=== PATIENT | female | born 1940 | race Caucasian/White ===

== ENCOUNTER → 2020-04-26 | Outpatient (CLI) | payer OTHER ==
[~2020-04-26] MED LIST: CALCIUM 500 +1 EAC5 PO; CARDIZEM CD 18180 M3 PO; COUMADIN 1MG TAB1 M1 PO; FLECAINIDE ACE150 MG PO; LISINOPRIL20 MG PO; SIMVASTATIN10 MG PO; VITAMIN D1000 UNI1 PO; XANAX 0.25 MG0.25 MG PO
== END ==
LOC: LAB 11:36
PROVIDERS: ATTEND Specialist
DX: Z01.812 Encounter for preprocedural laboratory examination (principal); Z20.822 Contact with and (suspected) exposure to COVID-19

== ENCOUNTER → 2020-05-01 | Outpatient (CLI) | payer OTHER ==
[~2020-05-01] VITALS: Ht 144.8 cm; Wt 44.0 kg
[~2020-05-01] MED LIST changes: +ASA81BEC PO; +CALCIUM CARBON500 MG PO; +ESSENTIAL DAIL1 EACH PO; +FEOSOL45 M1 PO; +MIRALAX17 GM PO; +ROSUVASTATIN CA20 MG PO; +WARFARIN SODIUM1 MG PO; +WARFARIN SODIUM3 MG PO; +[UNRECOGNIZED DRUG - OTHER] PO
[2020-05-01 08:53] LABS: INR 1.2; PROTIME 12.6 Seconds (9.3-11.4)
--- NOTE | 2020-05-06 19:06 | PATH ---
[facility] [address] [place] [address] PATHOLOGY RPT PROCEDURE Name: FRANKIE PÉREZ Room #: REG DAGOBERTO [facility].#: [id number] Admission: 05/01/20 Date of : 42 Discharge: Report #: [id number] Path Case #: [id number] [facility] Accession Number: [id number] . 01 Material submitted: . PART A: duodenum - BIOPSY DUODENAL RULE OUT SPRUE PART B: gastrointestinal site - BIOPSY GASTRITIS RULE OUT H. PYLORI PART C: colon - BIOPSY ASCENDING COLON POLYP. Modifiers: ascending . 01 Clinical history: . EGD COLONOSCOPY PRE-OPERATIVE DIAGNOSIS: ANEMIA POST-OPERATIVE DIAGNOSIS: HIATAL HERNIA, GASTRIC ULCERS, DUODENAL ULCERS, COLON POLYP . 02 Diagnosis: A. Small bowel mucosa, duodenal, rule out sprue, endoscopic biopsy: - No diagnostic abnormalities present. - Negative for villous blunting or increase in intraepithelial lymphocytes. . B. Gastric mucosa, gastritis, rule out H. pylori, endoscopic biopsy: - Mild chronic inflammation. - Negative for intestinal metaplasia or atrophy. - Negative for Helicobacter pylori (properly controlled immunohistochemical stain performed). . C. Polyp, ascending colon polyp, endoscopic biopsy: - Tubulovillous adenoma. - Negative for high-grade dysplasia or malignancy, see comment. (IUV:pit 05/06/2020) [facility] 05/06/2020 1246 Local . 02 Comment: A benefits representative focus was co-reviewed by Dr. Elsie Dickson who concurs with my interpretation. Please note although unremarkable mucosa is present at cautery, multiple foci of the adenoma are identified with cautery as well. Please correlate with intraoperative/endoscopy findings for a complete resection of this polyp. There is no evidence of high-grade dysplasia or malignancy within the sections examined. (IUV:pit 05/06/2020) . 02 Electronically signed: . Diamond Rojas MD, Pathologist NPI- [id number] . [address] [place] [address] PATHOLOGY RPT PROCEDURE Name: FRANKIE PÉREZ Room #: REG CL [facility].#: [id number] Admission: 05/01/20 Date of : 42 Discharge: Report #: [id number] Path Case #: [id number] Gross description: . A. Received in formalin labeled "Frankie Pérez, biopsy duodenal rule out sprue" are multiple fragments of heck-brown soft tissue measuring in aggregate 1.6 x 0.4 x 0.3 cm. The specimen is submitted entirely in A1. . B. Received in formalin labeled "Vannesa, Frankie biopsy gastritis rule out H. pylori" are multiple fragments of heck-brown soft tissue measuring in aggregate 0.9 x 0.4 x 0.3 cm. The specimen is submitted entirely in B1. . C. Received in formalin labeled "Vannesa, Frankie biopsy ascending colon polyp" are multiple fragments of heck-brown soft tissue measuring in aggregate 2.4 x 1.6 x 0.4 cm. The specimen is submitted entirely in C1.([facility]; 05/03/2020) GZA/GZA 05/03/2020 1606 Local . 02 Pathologist provided ICD-10: K29.50, D12.2 . 02 CPT . 252244, 616002, 187348, I04521 Specimen Comment: A courtesy copy of this report has been sent to [phone], [phone] Specimen Comment: [phone] Specimen Comment: Report sent to / DR VARGAS Performed at: 01 [facility] [address] [facility] [address], [place] [id number] MD Cristobal Wright MD Phone: [phone] Performed at: [address] [id number] MD Diamond Rojas MD Phone: [phone]
--- NOTE | 2020-05-08 09:09 | P ---
[facility] [place] [place] [address] PROCEDURE REPORT Name: FRANKIE PÉREZ Room #: REG DAGOBERTO Huyen#: [id number] Admission: 05/01/20 Attend Phys: Jeff Cochran Discharge: Date of : 42 Report #: [id number] THIS REPORT FOR: cc: Pasha Brush MD, Steven E. MD McElhinney, Christian C. MD ~ DATE OF SERVICE: 05/01/2020 PROCEDURE PERFORMED: Colonoscopy with polypectomy and tattoo. HISTORY OF PRESENT ILLNESS: The patient is a 79-year-old female with routine labs showing anemia. Hemoglobin 10.7. No obvious signs of gastrointestinal bleed. Upper endoscopy was just performed, which showed a large hiatal hernia, Al ulcers, gastritis and duodenal ulcers. No active bleeding. Plan is for colonoscopy. No family history of colon cancer or inflammatory bowel disease. DESCRIPTION OF PROCEDURE: The risks and benefits of the procedure were explained to the patient, those risks including but not limited to bleeding, perforation and the risk of sedation. She understood these risks and gave informed consent. Sedation was given using propofol per anesthesia. Next, a digital rectal exam was initially performed, which was normal. Next, using a standard Olympus colonoscope, the scope was placed in the patient's anus and advanced under direct vision to the cecum. The overall prep was excellent. The cecum and ileocecal valve were normal in appearance. In the proximal ascending colon, a large 2.5 cm polyp was noted, sessile. This was removed in a piecemeal fashion by snare cautery. The edges were then tattooed. Otherwise, normal ascending colon. The transverse, descending colon were normal. Multiple diverticula were noted in the sigmoid colon, no evidence of inflammation, otherwise normal. The rectal mucosa was normal. On retroflexion, no abnormalities were noted. Scope was then withdrawn and the procedure terminated. The patient tolerated the procedure well. IMPRESSION: 1. Large proximal ascending colon polyp as described above. 2. Sigmoid diverticulosis. 3. Otherwise, normal colonoscopy. RECOMMENDATIONS: 1. Await biopsy results. 2. If polyp is adenomatous with no evidence of dysplasia, recommend repeating colonoscopy in 2 years due to the size of the polyp. 3. There was no evidence of bleeding on EGD or colonoscopy today; however, the patient had multiple linear ulcers in her stomach as well as duodenal ulcers. Therefore, plan is to place her on long-term PPI therapy. Continue oral iron and monitoring hemoglobin. [address] [address] PROCEDURE REPORT Name: FRANKIE PÉREZ Room #: REG [facility]#: [id number] Admission: 05/01/20 Attend Phys: Jeff Cochran Discharge: Date of : 42 Report #: [id number] Thank you for allowing me to participate in her care. <ELECTRONICALLY SIGNED> By: Jeff Wagoner MD 05/08/20 0909 [id number] [id number] Jeff Wagoner, /andrea
--- NOTE | 2020-05-08 09:09 | P ---
[facility] [place] [address] [place] [address] PROCEDURE REPORT Name: FRANKIE PÉREZ Room #: REG DAGOBERTO Huyen#: [id number] Admission: 05/01/20 Attend Phys: Jeff Cochran Discharge: Date of : 42 Report #: [id number] THIS REPORT FOR: cc: Pasha Brush MD, Steven E. MD McElhinney, Christian C. MD ~ DATE OF SERVICE: 05/01/2020 PROCEDURE PERFORMED: Upper endoscopy with biopsies. HISTORY OF PRESENT ILLNESS: The patient is a 79-year-old female who was noted to be anemic on routine labs recently reportedly hemoglobin of 10.7, started oral iron recently because of increased constipation. No previous history of upper endoscopy. She was started on aspirin recently. She has been on Coumadin for a history of chronic AFib. She denies any obvious bright red blood per rectum or melena. She is scheduled for EGD and colonoscopy today. She denies any heartburn symptoms or dysphagia. No nausea or vomiting. DESCRIPTION OF PROCEDURE: The risks and benefits of the procedure were explained to the patient, those risks including but not limited to bleeding, perforation and the risk of sedation. She understood these risks and gave informed consent. Sedation was given using propofol per anesthesia. Next, using a standard Olympus upper endoscope, the scope was placed in the patient's mouth and advanced under direct vision through the esophagus, stomach and into the second portion of the duodenum. The esophagus was normal throughout. The GE junction was normal. Upon entering the stomach, a large hiatal hernia was noted within the hernia were linear ulcerations consistent with Al ulcers. No evidence of active bleeding. There was a mild gastritis also noted in the gastric antrum. Several biopsies were obtained to rule out H. pylori. The pylorus was normal and patent. In the duodenal bulb and first portion, multiple small superficial white ulcers were noted. Again, no evidence of bleeding. The second portion of the duodenum was normal. Biopsies were obtained to rule out the possibility of celiac sprue due to her history of anemia. The scope was then withdrawn and the procedure terminated. The patient tolerated the procedure well. IMPRESSION: 1. Large hiatal hernia. 2. Al ulcerations with gastritis. 3. Duodenal ulcers. 4. Otherwise normal. No evidence of active bleeding today, although above lesions could cause potentially bleeding and anemia. RECOMMENDATIONS: 1. Await biopsy results. [address] [address] PROCEDURE REPORT Name: LYNN PÉREZKENNETH Carreon Room #: REG CL Huyen#: [id number] Admission: 05/01/20 Attend Phys: Jeff Cochran Discharge: Date of : 42 Report #: [id number] 2. Recommend daily PPI therapy long-term. 3. We will proceed with colonoscopy next today. Thank you for allowing me to participate in her care. <ELECTRONICALLY SIGNED> By: Jeff Wagoner MD 05/08/20 0909 1 Jeff Wagoner MD /andrea
== END | disposition home or self-care (01) ==
LOC: GI 07:25
PROVIDERS: ATTEND Specialist
DX: D64.9 Anemia, unspecified (principal); D12.2 Benign neoplasm of ascending colon; K57.30 Diverticulosis of large intestine without perforation or abscess without bleeding; K29.50 Unspecified chronic gastritis without bleeding; K29.80 Duodenitis without bleeding; K44.9 Diaphragmatic hernia without obstruction or gangrene; I10 Essential (primary) hypertension; E78.00 Pure hypercholesterolemia, unspecified; I48.20 Chronic atrial fibrillation, unspecified; Z98.890 Other specified postprocedural states; Z79.899 Other long term (current) drug therapy; Z79.01 Long term (current) use of anticoagulants; Z88.2 Allergy status to sulfonamides; Z90.49 Acquired absence of other specified parts of digestive tract; Z98.41 Cataract extraction status, right eye; Z98.42 Cataract extraction status, left eye
CPT/HCPCS: 62110; 62900